=== PATIENT | female | born 1995 | race African-American/Black ===

== ENCOUNTER 2020-09-26 23:40 | Emergency (ER) | payer MEDICAID ==
[~2020-09-26] VITALS: Ht 172.7 cm; Wt 78.0 kg
[2020-09-26] MEDS ORDERED: HYDROCODONE/ACETAMINOPHEN 5/325MG TABLET PO ONE (23:45)
[2020-09-27] MEDS ORDERED: LIDO700A30 TP (00:41)
[2020-09-27] MEDS ORDERED: IBUP-2029 MT (00:41)
[2020-09-27 01:07] VITALS: BP 126/88
== END 2020-09-27 01:08 | disposition home or self-care (01) ==
LOC: ER 23:40
DX: R07.89 Other chest pain (principal); V49.49XA Driver injured in collision with other motor vehicles in traffic accident, initial encounter; Y93.89 Activity, other specified; Y92.410 Unspecified street and highway as the place of occurrence of the external cause
CPT/HCPCS: 71111; 93005; 99283